=== PATIENT | male | born 1950 | race African-American/Black ===

== ENCOUNTER 2017-03-28 15:52 | Outpatient (CLI) | payer OTHER ==
--- NOTE | 2017-03-28 16:42 | Diagnostic Imaging Report ---
Indications: Left sided facial droop and weakness Technique: Sagittal and axial T1 weighted FLAIR, axial T2-weighted fat saturated fast spin echo propeller, T2-weighted FLAIR, T2*-weighted gradient echo, and diffusion sequences of the brain were performed without IV gadolinium administration. Findings: Comparison: None 1.5 cm circumscribed, peripherally based focus of signal change/parenchymal loss is present in the posterior aspect of the left cerebellar hemisphere. Small discrete foci of signal change in the bilateral basal ganglia regions compatible prominent perivascular spaces. There are a few small circumscribed foci of T2 signal hyperintensity scattered throughout the right cerebral deep and subcortical white matter.. No evidence of mass or hemorrhage, other signal abnormality, mass effect, midline shift, hydrocephalus, or increased intracranial pressure. No restricted diffusion. Central vascular flow voids are preserved. 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
== END 2017-03-28 17:52 | disposition home or self-care (01) ==
LOC: MRI 15:52
DX: R29.810 Facial weakness (principal); G93.89 Other specified disorders of brain; Z86.73 Personal history of transient ischemic attack (TIA), and cerebral infarction without residual deficits
CPT/HCPCS: 70551